=== PATIENT | male | born 1970 | race Two or more races ===

== ENCOUNTER 2020-02-09 13:23 | Emergency (ER) | payer OTHER ==
[~2020-02-09] VITALS: Ht 172.7 cm; Wt 93.6 kg
[2020-02-09] MEDS ORDERED: DIPH,PERTUSS(ACELL),TET VAC/PF 0.5 ML IM-VACC ONE ×2 (13:30→13:42)
[2020-02-09] MEDS ORDERED: LIDOCAINE 1%, 10ML INFIL ONE (13:30)
[2020-02-09] MEDS ORDERED: LIDOCAINE-MPF 1%, 2ML ONE (13:45)
[2020-02-09] MEDS ORDERED: NEOSPORIN OINT. PKT 1 PACKET ONE (14:37)
[2020-02-09] MEDS ORDERED: IBUPROFEN 200 MG TABLET ONE (14:55)
[2020-02-09 14:58] VITALS: BP 125/71
[2020-02-09] MEDS ORDERED: IBUPROFEN 200 MG TABLET PO ONE (15:00)
== END 2020-02-09 15:16 | disposition home or self-care (01) ==
LOC: EDBD 13:23 → ED 15:10
DX: S61.211A Laceration without foreign body of left index finger without damage to nail, initial encounter (principal); X58.XXXA Exposure to other specified factors, initial encounter; Y93.89 Activity, other specified; Y92.69 Other specified industrial and construction area as the place of occurrence of the external cause; Y99.0 Civilian activity done for income or pay
CPT/HCPCS: 12001; 90471; 90715; 99283